=== PATIENT | male | born 1990 | race Caucasian/White ===

== ENCOUNTER 2016-08-27 06:06 | Day surgery (SDC) ==
[2016-08-27] MEDS ORDERED: LR 1,000 ML ONE ×2 (06:52→13:53)
[2016-08-27] MEDS ORDERED: KEFZOL 2 GM/D5W 50 ML ONE (06:52)
[2016-08-27] MEDS ORDERED: NAROPIN 0.5% ONE (08:04)
[2016-08-27] MEDS ORDERED: VERSED ONE ×2 (08:04→08:18)
[2016-08-27] MEDS ORDERED: DIPRIVAN 1% ONE (13:51)
[2016-08-27] MEDS ORDERED: FENTANYL ONE ×2 (13:51)
[2016-08-27] MEDS ORDERED: ZEMURON ONE (13:53)
[2016-08-27] MEDS ORDERED: QUELICIN (DOSE) ONE (13:53)
[2016-08-27] MEDS ORDERED: NORCURON ONE (13:53)
[2016-08-27] MEDS ORDERED: ZOFRAN ONE (13:53)
[2016-08-27] MEDS ORDERED: DECADRON ONE (13:53)
[2016-08-27] MEDS ORDERED: XYLOCAINE-MPF 2% ONE (13:53)
[2016-08-27] MEDS ORDERED: PERCOCET-5 ONE (14:22)
[2016-08-27 15:18] VITALS: BP 131/80
--- NOTE | 2016-08-27 17:34 | OPERATIVE NOTE ---
PROCEDURE DATE: 08/27/2016 PREOPERATIVE DIAGNOSES: 1. Left syndesmosis instability. 2. Left deltoid instability. 3. Left ankle synovitis. 4. Left painful ankle hardware. POSTOPERATIVE DIAGNOSES: 1. Left syndesmosis instability. 2. Left deltoid instability. 3. Left ankle synovitis. 4. Left painful ankle hardware. PROCEDURE: 1. Left hardware removal, deep, from the ankle. 2. Left syndesmotic fusion. 3. Left bone graft major taken from the calcaneus. 4. Left ankle arthrotomy and synovectomy. 5. Left deltoid reconstruction. SURGEON: Mina Novak MD [employer] CLE[employer] MACHINE TENDER: Braden Velez RN ANESTHESIA: General with LMA and preoperative popliteal block. BLOOD LOSS: 100 mL. TOURNIQUET TIME: 130 minutes and then it was let down for over 30 minutes and then back up for about 40 minutes. IMPLANTS: 1. Biomet 1/3 tubular plate and 4-0 screws. 2. Arthrex Bio-tenodesis screws x2 and Arthrex suture button x2. 3. Semitendinosus allograft. DISPOSITION: To PACU, hemodynamically stable. INDICATION FOR PROCEDURE: Mr. Yevgeniy Bernal is a 26-year-old male, who is about 2-1/2 years out from an open ankle fracture. He has undergone 3 surgeries already and unfortunately he is still left with broken hardware, unstable syndesmosis, unstable deltoid as well. I discussed with him about revision procedure, which would be a syndesmotic fusion, deltoid reconstruction, and clean out the ankle. After discussing everything with him, he expressed understanding and wished to proceed. DESCRIPTION OF PROCEDURE: Mr. Bernal was identified in the preoperative holding area. The left foot was marked as correct surgical site. He was then wheeled to the operative room, placed supine on the operating table. All bony prominences were well padded. He was induced under general anesthesia. LMA was placed. Tourniquet placed to the left thigh. Left lower extremity was then prepped with chlorhexidine gluconate scrub and then ChloraPrep, and draped in normal sterile fashion. Surgical pause was performed. We identified the correct patient, correct side, and the correct procedure. Preop antibiotics were given, which was 2 g IV Ancef. Esmarch was used to exsanguinate the left lower extremity and tourniquet was inflated to 300 mmHg. I started with an incision over the lateral aspect of the distal fibula. I did cut out his old incision. I then came down onto the fibula, came over the anterior aspect of the distal fibula down and around the syndesmotic area. I was able to start cleaning out that syndesmosis. We did run into some hardware there. I took out that screw that was in the syndesmosis, it was out bone. I removed it and also removed the suture button that was on the lateral tibial cortex as well. Then used a curette, rongeur to really clean off all that scarred in soft tissue over the bone and the syndesmosis. I then used a bur and really burred down to try to get a little bone graft and roughened up the bone so we could get a good fusion. I then took a drill and then drilled that whole area as well so we get nice raw bleeding bone against each other. I then made a small stab incision down on the lateral aspect of the calcaneus, took 2 passes and got some good bone graft from that calcaneus. We packed it at our syndesmotic fusion area. So felt I had a good preparation of our syndesmosis. I then came on the medial side, before we clamped everything down I made my incision over the medial malleolus. Came up anteriorly and made my arthrotomy in the ankle and there was a lot of scar tissue and synovitis in that medial gutter. I cleaned all that out and got back to nice looking cartilage so we would be able to squeeze that together. After I had a nice clean out of there, then used a very large bony tenaculum and was able to squeeze that syndesmosis back together and then put a plate and screws laterally, 4 transfixing pin through the fibula and the tibia, and those held actually really well. I was very happy with our compression there at the syndesmosis as well and looked like that gap had closed down really nicely. After that, I came back on the medial side and then got my position for my deltoid reconstruction in the medial malleolus with a guidewire. Fortunately, I did not get any screws on the way in with that and then overdrilled that with a 6 mm reamer and that would be where I would pass my tendon allograft up through. I then drilled my tunnels both in the medial aspect of the talus, which was confirmed under fluoroscopic imaging to be in good position, and also sustentaculum which was confirmed under fluoroscopic imaging, and Anderson heel view, to be in good position. I then passed my graft down into the talar tunnel up some into the medial malleolus, but did not tension it at this point, and then I passed that final limp into the calcaneus. I secured the talar component first with a Bio-tenodesis screw and secured the calcaneal portion with a Bio-tenodesis screw as well and I went to tension up through the tibia, unfortunately that calcaneal limb pulled out. So I ended up having to cut the suture button on the lateral aspect of the distal tibia. The talar component held actually extremely well and so rewhip stitched the end for the calcaneal limb. Then I used a suture button fixation for that calcaneal limb backed it up with a tenodesis screw and then pulled that graft back up into the tibia and tensioned it to reconstruct my ligament and we had really good tension on both limbs. He had still really good range of motion as well after reconstructing that deltoid. Fluoroscopic imaging showed that the syndesmosis was well reduced. We probably had about a mm or 2 medial clear space widening if I had to be really critical at the end of the case, but it did appear to be really stable. After this, then we irrigated everything copiously with normal saline. I closed the deep layer with 0 Vicryl, subcutaneous layer with 2-0 Vicryl, and the skin with nylon. Adaptic, 4x4s, ABD, soft roll, and posterior splint was applied. Tourniquet was let down and patient had good capillary refill return to the toes. The patient was then awoken from general anesthesia, moved to his own bed, and taken to the PACU in stable condition. Postoperatively, patient will be nonweightbearing left lower extremity and I will see him in a week in clinic.
== END 2016-08-27 15:15 | disposition home or self-care (01) ==
LOC: OPS 06:06
PROVIDERS: ATTEND Orthopaedic Surgery
DX: M25.372 Other instability, left ankle (principal); M65.9 Synovitis and tenosynovitis, unspecified; T84.84XA Pain due to internal orthopedic prosthetic devices, implants and grafts, initial encounter; Z87.891 Personal history of nicotine dependence
CPT/HCPCS: 76000; J0330; J0690; J1100; J2250; J2405; J2795; J3010; J7120